=== PATIENT | female | born 1980 | race Caucasian/White ===

== ENCOUNTER 2023-05-17 22:12 | Inpatient (IN) ==
[2023-05-17] MEDS ORDERED: ONDANSETRON INJ 2 MG/ML 2 ML VIAL IV STA (23:01)
[2023-05-17] MEDS ORDERED: SODIUM CHLORIDE 0.9% 1000ML 1,000 ML IV STA (23:01)
[2023-05-17] MEDS ORDERED: fentaNYL citrate PF 100 MCG/2 ML VIAL IV PRN (23:01)
[2023-05-17] MEDS ORDERED: MoRPHine SULFATE 2 MG/ML CARP IV PRN (23:21)
[2023-05-17] MEDS ORDERED: MoRPHine SULFATE 4 MG/ML 1 ML CARP\\VIAL IV PRN (23:21)
--- NOTE | 2023-05-17 23:21 | Emergency Department Note ---
Impression & Plan Dislocation closed, hip, Alcohol intoxication ED Provider Note NAME: KEHINDE AGUIRRE AGE: 43 SEX: F : 1980 ARRIVES VIA: Ambulance INFORMANT: Patient ED PROVIDER(S): Johnnie Pina DO CHIEF COMPLAINT: Left hip pain HPI: Patient is a 43-year-old female who presents ER for left hip pain. Patient has a total hip DrAnge Chew 10 years ago. She notes she dislocated her right hip about 5 years ago. She was sitting and bent over and her left hip popped out. She has severe pain on the left hip. Denies any tingling or numbness. No falls. No trauma. No chest pain or shortness of breath. No nausea, vomiting, or diarrhea. No dysuria, urgency, or frequency. She does admit to drinking alcohol tonight. She ate a couple hotdogs prior to coming in around 8 to 9 PM. She drank a bottle of water just prior to the arrival of the ambulance at around 1030. PAST MEDICAL HISTORY:See Below PAST SURGICAL HISTORY:See Below FAMILY HISTORY:See Below SOCIAL HISTORY:See Below HOME MEDICATIONS:See Below ALLERGIES:See Below VITALS:See Below PHYSICAL EXAMINATION: GENERAL: Sitting up in bed, alert, well appearing, well nourished, no distress, non-toxic EYE EXAM: normal conjunctiva. OROPHARYNX: mucous membranes are moist NECK: supple, no nuchal rigidity, no adenopathy, non-tender LUNGS: Clear to auscultation. Normal chest wall mechanics HEART: no murmurs, S1 normal and S2 normal ABDOMEN: abdomen soft, non-tender, normo-active bowel sounds, no masses, no rebound or guarding. UPPER EXTREMITIES: upper extremities are grossly normal. LOWER EXTREMITIES: No pitting edema. NEURO EXAM: Normal sensorium, cranial nerves II-XII grossly intact, normal speech, no gross weakness of arms, no gross weakness of legs. MEDICAL DECISION MAKING: Patient is a 43-year-old female who presents the ER for left hip pain. IV was established blood work was obtained. External records were reviewed. Labs show mild leukocytosis of 10.8 thousand. No significant anemia. BMP along LFTs bilirubin and lipase was unremarkable. Alcohol was elevated at nearly 220. COVID was negative. X-rays are consistent with left hip dislocation. The alcohol intoxication and eating just prior to coming in patient would not be able to be sedated. I contacted orthopedics and they will take the patient to the OR in the morning. I discussed with Lori Rodríguez for admission and further evaluation. Patient was given IV fluids, Zofran and morphine while in the ER. Patient was admitted for close monitoring and to go to the OR for reduction in the morning Triage Nursing notes reviewed. Limited review of prior medical records performed Vital Signs: reviewed and remarkable for HTN Differential diagnosis: Fracture, subluxation, dislocation, contusion, ligamentous injury, neurovascular, compartment syndrome, rhabdomyolysis, as well as other pathologies. ER treatment provided: See below Diagnostics interpreted by me include EKG and cardiac monitoring as listed below: -Cardiac Monitoring: An order was placed for continuous cardiac monitoring. The monitor shows a rate of 92 with sinus rhythm. -ECG: none -Laboratory studies:Interpreted by me as stated above in MDM and shown below. Imaging studies: Xrays: As interpreted by me: X-ray of the left hip and pelvis shows a left hip dislocation per my read CTs show: none Consultation(s): As described in MDM discussed with both orthopedics and internal medicine Procedures:none Critical Care: None Past Med/Surg History Medical History (Updated 05/18/23 @ 01:57 by Johnnie Pina DO) Asthma Avascular necrosis of femur head, right (01/26/14) Dislocation of prosthetic device GERD (gastroesophageal reflux disease) Surgical History History of total hip arthroplasty Family History Other No pertinent family history in first degree relatives Social History Smoking Status: Current every day smoker Preferred Language: Irish Feels Safe at Home: Yes Allergies Allergies Allergy/AdvReac Type Severity Reaction Status Date / Time No Known Allergies Allergy Unverified 05/17/23 23:17 Home Meds Home Medications Medication Instructions Recorded Confirmed lactobacillus combination no.4 3 0 mmu cells PO DAILY 05/17/23 05/17/23 billion cell capsule (Probiotic) vitamin B complex 1 tab PO DAILY 05/17/23 05/17/23 Results & Data (ED) Vital Signs Vital Signs - 24 hr 05/17/23 22:20 05/17/23 22:17 05/18/23 00:36 Temperature 36.8 C Temperature Source Oral Pulse Rate 90 87 Pulse Rate [Apical] Pulse Rhythm [Apical] Pulse Strength [Apical] Respiratory Rate 20 Respiratory Effort / Characteristics Non-Labored Spontaneous Respiratory Depth Normal Respiratory Pattern Regular Blood Pressure 152/88 H Blood Pressure [Right Arm] Blood Pressure Mean 109 Blood Pressure Mean [Right Arm] Blood Pressure Position [Right Arm] Pulse Oximetry 99 99 Oxygen Delivery Method Room Air Nasal Cannula Oxygen Flow Rate 1 Sepsis Recent Fever Within 48 Hours No Sepsis New/Unexplained Change in Mental Status N/A Sepsis Action Taken by Nursing No Action Required 05/18/23 00:36 Temperature Temperature Source Pulse Rate Pulse Rate [Apical] 94 H Pulse Rhythm [Apical] Regular Pulse Strength [Apical] Normal Respiratory Rate 18 Respiratory Effort / Characteristics Non-Labored Spontaneous Respiratory Depth Normal Respiratory Pattern Regular Blood Pressure Blood Pressure [Right Arm] 124/81 Blood Pressure Mean Blood Pressure Mean [Right Arm] 95 Blood Pressure Position [Right Arm] Semi-fowlers Pulse Oximetry 99 Oxygen Delivery Method Nasal Cannula Oxygen Flow Rate 1 Sepsis Recent Fever Within 48 Hours Sepsis New/Unexplained Change in Mental Status Sepsis Action Taken by Nursing Laboratory Data 05/17/23 23:44 05/17/23 23:44 Lab Results 05/17/23 05/17/23 05/17/23 Range/Units 11:59 23:44 23:44 WBC 10.82 H (4.8-10.8) K/ul RBC 4.28 (4.20-5.40) M/uL Hgb 14.2 (12.0-16.0) g/dl Hct 41.7 (37.0-47.0) % MCV 97.4 (80.0-100.0) fL MCH 33.2 (25.0-34.0) pg MCHC 34.1 (32.0-36.0) g/dL RDW Std Deviation 49.7 H (36.4-46.3) fL RDW Coeff of Abby 13.8 (11.5-14.5) % Plt Count 328 (130-400) K/uL MPV 8.9 L (9.4-12.4) fL Immature Gran % (Auto) 0.4 % Neut % (Auto) 80.5 % Lymph % (Auto) 14.1 % [place] % (Auto) 3.9 % Eos % (Auto) 0.5 % Baso % (Auto) 0.6 % Neut # (Auto) 8.72 H (1.40-6.50) K/uL Lymph # (Auto) 1.53 (1.2-3.4) K/uL [place] # (Auto) 0.42 (0.11-0.59) K/uL Eos # (Auto) 0.05 (0-0.50) K/uL Baso # (Auto) 0.06 (0-0.2) K/uL Immature Gran # (Auto) 0.04 (0.01-0.20) K/uL Sodium 136 (136-145) mmol/L Potassium 3.7 (3.5-5.1) mmol/L Chloride 106 (98-107) mmol/L Carbon Dioxide 21 (21-32) mmol/L Anion Gap 9 (3-11) BUN 10 (6-23) mg/dl Creatinine 0.64 (0.6-1.2) mg/dl Est Cr Clr Drug Dosing 137.0 ml/min Est GFR ( Amer) 126.7 ml/min Est GFR (Non-Af Amer) 109.3 ml/min BUN/Creatinine Ratio 15.6 (10-20) Glucose 83 (70-99(Fasting)) mg/dl Calcium 8.1 L (8.6-10.3) mg/dl Total Bilirubin 0.3 (0.2-1.0) mg/dl AST 19 (13-39) U/L ALT 20 (7-52) U/L Alkaline Phosphatase 89 (34-104) U/L Total Protein 7.5 (6.0-8.3) gm/dl Albumin 4.5 (3.4-5.0) gm/dl Globulin 3.0 (2.5-4.0) gm/dl Albumin/Globulin Ratio 1.5 (0.9-2) Lipase 56 (11-82) U/L Ethyl Alcohol mg/dL (<10.0) mg/dl SARS-CoV-2, RNA, NAAT NEGATIVE (NEGATIVE) 05/17/23 Range/Units 23:44 WBC (4.8-10.8) K/ul RBC (4.20-5.40) M/uL Hgb (12.0-16.0) g/dl Hct (37.0-47.0) % MCV (80.0-100.0) fL MCH (25.0-34.0) pg MCHC (32.0-36.0) g/dL RDW Std Deviation (36.4-46.3) fL RDW Coeff of Abby (11.5-14.5) % Plt Count (130-400) K/uL MPV (9.4-12.4) fL Immature Gran % (Auto) % Neut % (Auto) % Lymph % (Auto) % [place] % (Auto) % Eos % (Auto) % Baso % (Auto) % Neut # (Auto) (1.40-6.50) K/uL Lymph # (Auto) (1.2-3.4) K/uL [place] # (Auto) (0.11-0.59) K/uL Eos # (Auto) (0-0.50) K/uL Baso # (Auto) (0-0.2) K/uL Immature Gran # (Auto) (0.01-0.20) K/uL Sodium (136-145) mmol/L Potassium (3.5-5.1) mmol/L Chloride (98-107) mmol/L Carbon Dioxide (21-32) mmol/L Anion Gap (3-11) BUN (6-23) mg/dl Creatinine (0.6-1.2) mg/dl Est Cr Clr Drug Dosing ml/min Est GFR ( Amer) ml/min Est GFR (Non-Af Amer) ml/min BUN/Creatinine Ratio (10-20) Glucose (70-99(Fasting)) mg/dl Calcium (8.6-10.3) mg/dl Total Bilirubin (0.2-1.0) mg/dl AST (13-39) U/L ALT (7-52) U/L Alkaline Phosphatase (34-104) U/L Total Protein (6.0-8.3) gm/dl Albumin (3.4-5.0) gm/dl Globulin (2.5-4.0) gm/dl Albumin/Globulin Ratio (0.9-2) Lipase (11-82) U/L Ethyl Alcohol mg/dL 214.1 H (<10.0) mg/dl SARS-CoV-2, RNA, NAAT (NEGATIVE) Administered Medications Fentanyl Citrate (Fentanyl Citrate Pf 100 Mcg/2 Ml Vial) 50 mcg IV Q15M PRN PRN Reason: Pain Stop: 05/31/23 23:00 Last Admin: 05/17/23 23:20 Dose: 50 mcg Documented By: CAW Discontinued Medications Sodium Chloride (Nss 1000ml) 1,000 mls @ 999 mls/hr IV .Q1H1M STA Stop: 05/18/23 00:01 Last Admin: 05/17/23 23:20 Dose: 999 mls/hr Documented By: NICOLEW Morphine Sulfate (Morphine Sulfate 4 Mg/Ml 1 Ml Carp\Vial) 4 mg IV NOW STA Stop: 05/17/23 23:58 Last Admin: 05/18/23 00:31 Dose: 4 mg Documented By: BAKARI Ondansetron HCl (Ondansetron Inj 2 Mg/Ml 2 Ml Vial) 4 mg IV NOW STA Stop: 05/17/23 23:02 Last Admin: 05/17/23 23:21 Dose: 4 mg Documented By: SHERYL Discharge Plan Visit Data Chief Complaint: Hip Pain ED Provider: Johnnie Pina Discharge Problem: Dislocation closed, hip, Alcohol intoxication Forms Stand Alone Forms: [facility] Prescriptions Prescriptions: No Action vitamin B complex Tablet 1 tab PO DAILY Probiotic 3 billion cell Capsule 0 mmu cells PO DAILY Rx Instructions: administer with a meal Referrals Referrals: Teresa Mccormack MD [Primary Care Provider] -
--- NOTE | 2023-05-17 23:42 | History & Physical Report ---
Date of Service May 17, 2023 Assessment & Plan (1) Dislocation of prosthetic device: Plan: 43yo female with history of bilateral hip arthroplasty presenting with acute atraumatic dislocation of left hip. Patient is in significant pain. Neurovascularly intact. Last ate at 05/17/23 at 20:00 -Admit to medical -Keep NPO -Pain control with Morphine as needed -Zofran as needed -Place external urinary catheter due to limited hip mobility -Orthopedic Surgery consultation appreciated - likely to OR for reduction in AM F/E/N - LR at 100mL/hr x 1L, electrolytes WNL, NPO for now, bowel regimen Ppx - SCDs to bilateral LE Code - Full per discussion with patient Dispo - Admit to medical with telemetry History of Present Illness Chief Complaint: left hip pain Primary Care Provider: Teresa Mccormack MD Nisha Goldman is a 43yo female with history of asthma, GERD, s/p bilateral [place] presenting with acute dislocation of left hip. Patient was at camp this evening with her family. She was leaning over when her left hip popped - she developed acute severe pain in her left hip and inability to move her LLE. She last ate some hot dogs at 20:00. Did drink some beer tonight as well. Patient had her hip arthroplasty appx [address] Chew. She did have a dislocation of the prosthesis approximately 5 years ago and had to go to the OR to have it reduced. Patient is in discomfort, unable to get her leg comfortable. Has full sensation of the LLE. Otherwise denies fever, chills, chest pain, cough, SOB, abdominal pain, nausea, vomiting, diarrhea. ER Course: Morphine 4mg Zofran 4mg Fentanyl 50mcg NSS x 1L Allergies Allergy/AdvReac Type Severity Reaction Status Date / Time No Known Allergies Allergy Unverified 05/17/23 23:17 Home Medications Medication Instructions Recorded Confirmed Type lactobacillus combination no.4 3 0 mmu cells PO DAILY 05/17/23 05/17/23 History billion cell capsule (Probiotic) vitamin B complex 1 tab PO DAILY 05/17/23 05/17/23 History Past Med/Surg History Medical History (Updated 05/18/23 @ 00:46 by Lurdes Rodríguez DO) Asthma Avascular necrosis of femur head, right (01/26/14) Dislocation of prosthetic device GERD (gastroesophageal reflux disease) Surgical History History of total hip arthroplasty Family History Other No pertinent family history in first degree relatives Social History Smoking Status: Current every day smoker Preferred Language: Maori Feels Safe at Home: Yes Review of Systems Review of Systems: All systems reviewed & are unremarkable except as noted in HPI & below Physical Exam Physical Exam: General: patient in significant discomfort, awake/alert and oriented Skin: warm, dry, intact, no rashes or lesions HEENT: NC/AT, PERRL, EOMI, anicteric sclera, conjunctiva without injection, external ear normal to inspection and nontender, nares patent, moist mucus membranes, dentition intact, no oropharyngeal lesions, neck supple, trachea midline, no LAD, no thyromegaly, no JVD Heart: +S1/S2, regular, no m/r/g Lungs: equal air entry bilaterally, no rales/rhonchi/wheezes Abd: +BS, soft, NT/ND, no masses/organomegaly/ascites Ext: warm, 2+ pulses in UE/LE bilaterally, no clubbing/cyanosis or edema, LLE internally rotated and shortened, 2+ DP/PT pulses Neuro: nonfocal, patient AA&O x 4, speech intact, no facial droop, moving all extremities on command with equal strength 5/5 Results & Data Results & Data Vital Signs (Past 12 Hours) Vital Signs Temp Pulse Resp BP Pulse Ox O2 Del Method 05/17/23 22:17 87 05/17/23 22:20 36.8 C 90 20 152/88 H 99 Room Air Laboratory Results Laboratory Results WBC 10.82 K/ul (4.8-10.8) H 05/17/23 23:44 RBC 4.28 M/uL (4.20-5.40) 05/17/23 23:44 Hgb 14.2 g/dl (12.0-16.0) 05/17/23 23:44 Hct 41.7 % (37.0-47.0) 05/17/23 23:44 MCV 97.4 fL (80.0-100.0) 05/17/23 23:44 MCH 33.2 pg (25.0-34.0) 05/17/23: MCHC 34.1 g/dL (32.0-36.0) 05/17/23:44 RDW Std Deviation 49.7 fL (36.4-46.3) H 05/17/23: RDW Coeff of Abby 13.8 % (11.5-14.5) 05/17/23:44 Plt Count 328 K/uL (130-400) 05/17/23:44 MPV 8.9 fL (9.4-12.4) L 05/17/23: Immature Gran % (Auto) 0.4 % 05/17/23: Neut % (Auto) 80.5 % 05/17/23:44 Lymph % (Auto) 14.1 % 05/17/23:44 [place] % (Auto) 3.9 % 05/17/23:44 Eos % (Auto) 0.5 % 05/17/23 23:44 Baso % (Auto) 0.6 % 05/17/23:44 Neut # (Auto) 8.72 K/uL (1.40-6.50) H 05/17/23:44 Lymph # (Auto) 1.53 K/uL (1.2-3.4) 05/17/23 23:44 [place] # (Auto) 0.42 K/uL (0.11-0.59) 05/17/23:44 Eos # (Auto) 0.05 K/uL (0-0.50) 05/17/23 23:44 Baso # (Auto) 0.06 K/uL (0-0.2) 05/17/23 23:44 Immature Gran # (Auto) 0.04 K/uL (0.01-0.20) 05/17/23:44 Sodium 136 mmol/L (136-145) 05/17/23:44 Potassium 3.7 mmol/L (3.5-5.1) 05/17/23:44 Chloride 106 mmol/L (98-107) 05/17/23:44 Carbon Dioxide 21 mmol/L (21-32) 05/17/23 23:44 Anion Gap 9 (3-11) 05/17/23 23:44 BUN 10 mg/dl (6-23) 05/17/23 23:44 Creatinine 0.64 mg/dl (0.6-1.2) 05/17/23 23:44 Est Cr Clr Drug Dosing 137.0 ml/min 05/17/23 23:44 Est GFR ( Amer) 126.7 ml/min 05/17/23 23:44 Est GFR (Non-Af Amer) 109.3 ml/min 05/17/23 23:44 BUN/Creatinine Ratio 15.6 (10-20) 05/17/23 23:44 Glucose 83 mg/dl (70-99(Fasting)) 05/17/23 23:44 Calcium 8.1 mg/dl (8.6-10.3) L 05/17/23 23:44 Total Bilirubin 0.3 mg/dl (0.2-1.0) 05/17/23 23:44 AST 19 U/L (13-39) 05/17/23 23:44 ALT 20 U/L (7-52) 05/17/23 23:44 Alkaline Phosphatase 89 U/L (34-104) 05/17/23 23:44 Total Protein 7.5 gm/dl (6.0-8.3) 05/17/23 23:44 Albumin 4.5 gm/dl (3.4-5.0) 05/17/23 23:44 Globulin 3.0 gm/dl (2.5-4.0) 05/17/23 23:44 Albumin/Globulin Ratio 1.5 (0.9-2) 05/17/23 23:44 Lipase 56 U/L (11-82) 05/17/23 23:44 Ethyl Alcohol mg/dL 214.1 mg/dl (<10.0) H 05/17/23 23:44 SARS-CoV-2, RNA, NAAT NEGATIVE (NEGATIVE) 05/17/23 11:59 Diagnostic Findings X-ray left hip - per my interpretation - appears to have superior dislocation of prothesis. No obvious fracture PG Care Time/CCT Total # of Minutes Spent Total Time Spent with Patient: Total time spent is greater than 50% in coordination of care (as documented) at patient's floor/unit and/or counseling patient: Coding Level of Care Code 93404 INT INP/OBS CARE Diagnoses Dislocation of prosthetic device T85.628A
[2023-05-17] MEDS ORDERED: MoRPHine SULFATE 4 MG/ML 1 ML CARP\\VIAL IV STA (23:57)
[2023-05-18 00:08] LABS: Basophils # (auto) 0.06 K/uL (0-0.2); Basophils % (auto) 0.6 %; Eosinophils # (auto) 0.05 K/uL (0-0.50); Eosinophils % (auto) 0.5 %; Hematocrit (blood only) 41.7 % (37.0-47.0); Hemoglobin 14.2 g/dl (12.0-16.0); Immature Granulocytes # (auto) 0.04 K/uL (0.01-0.20); Immature Granulocytes % (auto) 0.4 %; Lymphocytes # (auto) 1.53 K/uL (1.2-3.4); Lymphocytes % (auto) 14.1 %; Mean Corpuscular Hemoglobin 33.2 pg (25.0-34.0); Mean Corpuscular Hgb Conc 34.1 g/dL (32.0-36.0); Mean Corpuscular Volume 97.4 fL (80.0-100.0); Mean Platelet Volume 8.9 fL (9.4-12.4); Monocytes # (auto) 0.42 K/uL (0.11-0.59); Monocytes % (auto) 3.9 %; Neutrophils # (auto) 8.72 K/uL (1.40-6.50); Neutrophils % (auto) 80.5 %; Platelet Count 328 K/uL (130-400); RDW Coefficient of Variation 13.8 % (11.5-14.5); RDW Standard Deviation 49.7 fL (36.4-46.3); Red Blood Count 4.28 M/uL (4.20-5.40); White Blood Count 10.82 K/ul (4.8-10.8)
[2023-05-18 00:19] LABS: Albumin Level 4.5 gm/dl (3.4-5.0); Bilirubin,Total 0.3 mg/dl (0.2-1.0); Calcium 8.1 mg/dl (8.6-10.3); Potassium 3.7 mmol/L (3.5-5.1)
[2023-05-18 00:25] LABS: Albumin Globulin Ratio 1.5 (0.9-2); BUN Creatinine Ratio 15.6 (10-20); Est GFR (African American) 126.7 ml/min; Est GFR (Non-African American) 109.3 ml/min; Total Protein 7.5 gm/dl (6.0-8.3)
[2023-05-18] MEDS ORDERED: LACTATED RINGER'S 1,000 ML IV SCH (02:30)
[2023-05-18] MEDS ORDERED: MoRPHine SULFATE 2 MG/ML CARP IV PRN ×2 (02:30→11:20)
[2023-05-18] MEDS ORDERED: ACETAMINOPHEN 325 MG TAB PO PRN (02:30)
[2023-05-18] MEDS ORDERED: MAGNESIUM HYDROXIDE SUSP 30 ML UDC PO PRN (02:30)
[2023-05-18] MEDS ORDERED: NALOXONE HCL 0.4 MG/1 ML VIAL/CARP IV PRN (02:30)
[2023-05-18] MEDS ORDERED: bisacodyL 10 MG SUPP PR PRN (02:30)
[2023-05-18] MEDS ORDERED: ONDANSETRON INJ 2 MG/ML 2 ML VIAL IV PRN ×2 (02:30→17:09)
[2023-05-18] MEDS: MoRPHine SULFATE 4 MG/ML 1 ML CARP\\VIAL IV PRN ×5 (02:56→14:25)
--- NOTE | 2023-05-18 07:33 | XRay Report ---
XR hip LT 2V w pelvis CLINICAL HISTORY: Left hip pain. COMPARISON STUDY: Left hip 05/28/2018. FINDINGS: Superior dislocation of the left femoral prosthesis in relation to the acetabular cup. No a cute fractures identified within the pelvis or hips. There is a right total hip arthroplasty which ap pears intact. Progressive cortical thickening within the proximal shaft of the right femur. IMPRESSION: 1. Dislocated left femoral prosthesis. No acute fractures. 2. Progressive cortical thickening within the within the proximal shaft of the right femur. This coul d represent stress related changes/healing stress fracture. ACT 112: Negative or not required by law. Electronically signed by: Nathan Huang M.D. 05/18/2023 7:31 AM
--- NOTE | 2023-05-18 08:40 | Anesthesiology Consultation ---
Date of Service May 18, 2023 Assessment & Plan Chart Review Chart Review: Acceptable Risk for Surgery and Patient NOT seen in Pre Admission Testing Consults Requested none History Surgery Operation Date: 05/18/23 07:00 Proposed Procedures p Left Hip Closed Reduction - Peter Ortiz M.D. Height/Weight Height: 5 ft 5 in Weight: 103.2 kg Allergies Allergy/AdvReac Type Severity Reaction Status Date / Time No Known Allergies Allergy Unverified 05/17/23 23:17 Medications Home Medications Medication Instructions Recorded Confirmed Last Taken lactobacillus combination no.4 3 0 mmu cells PO DAILY 05/17/23 05/17/23 Unknown billion cell capsule (Probiotic) vitamin B complex 1 tab PO DAILY 05/17/23 05/17/23 Unknown Active Medications Generic Name Dose Route Start Last Admin Trade Name Freq PRN Reason Stop Dose Admin Lactated Ringer's 1,000 mls @ 100 mls/hr 05/18/23 02:30 05/18/23 02:54 Lr IV 05/18/23 12:29 100 mls/hr .Q10H DELFINA Administration Morphine Sulfate 4 mg 05/18/23 02:30 05/18/23 06:50 Morphine Sulfate 4 Mg/Ml 1 Ml Carp\Vial IV 06/01/23 02:29 4 mg Q3H PRN Administration Pain (6,7,8,9,10) Past Medical History Medical History (Updated 05/18/23 @ 01:57 by Johnnie Pina DO) Asthma Avascular necrosis of femur head, right (01/26/14) Dislocation of prosthetic device GERD (gastroesophageal reflux disease) Past Family History Family History Other No pertinent family history in first degree relatives Past Surgical History Surgical History History of total hip arthroplasty Social History Smoking Status: Current every day smoker tobacco type: cigarettes Do You Dip or Chew Tobacco: No Hx Alcohol Use: Yes Alcohol type: beer alcohol intake frequency: 0-2 drinks per day Alcohol Intake Frequency Comment: some times 6-8 beers daily sometimes weekly Hx Substance Use: Yes substance use type: marijuana Last Used Substance Other:: a couple months ago Physical Exam Vital Signs Last Vital Signs Temp 36.6 C 05/18/23 07:38 Pulse 72 05/18/23 07:38 Resp 16 05/18/23 07:38 BP 147/84 H 05/18/23 07:38 Pulse Ox 95 05/18/23 07:38 O2 Del Method Room Air 05/18/23 07:38 O2 Flow Rate 2 05/18/23 02:11 Testing Laboratory Results 05/17/23 23:44 05/17/23 23:44 Blood Type O Positive 05/18/23 07:14 Antibody Screen NEGATIVE 05/18/23 07:14
--- NOTE | 2023-05-18 10:37 | Hospitalist Progress Note ---
Date of Service May 18, 2023 Assessment & Plan (1) Dislocation of prosthetic device: Plan: 43yo female with history of bilateral hip arthroplasty presenting with acute atraumatic dislocation of left hip. Patient is in significant pain. Neurovascularly intact. Last ate at 05/17/23 at 20:00 -Admit to medical -Keep NPO -Pain control with Morphine as needed -Zofran as needed -Place external urinary catheter due to limited hip mobility -Orthopedic Surgery consultation appreciated - likely to OR for reduction this AM. Orthopedic service will take over as primary service. -Patient reports she is not going through any signs of withdrawal. -Patient not interesting in alcohol rehab as she states she does not drink daily, only on weekends, and was camping this past weekend. No acute medical issues at this time. Medicine service will sign off. Please free feel free to contact our service for any questions or concerns. DVT: SCDs Admission and Anticipated Discharge Date Admission Date: May 17, 2023 Subjective 43 yo female reports no tremors, hallucinations, nausea, vomiting. Patient has some discomfort from affected hip joint. Review of Systems Review of Systems: All systems reviewed & are unremarkable except as noted in HPI & below Physical Exam Physical Exam: General: patient in significant discomfort, awake/alert and oriented Skin: warm, dry, intact, no rashes or lesions HEENT: NC/AT, PERRL, EOMI, anicteric sclera, no JVD Heart: +S1/S2, regular, no m/r/g Lungs: equal air entry bilaterally, no rales/rhonchi/wheezes Abd: +BS, soft, NT/ND, no masses/organomegaly/ascites Ext: warm, 2+ pulses in UE/LE bilaterally, no clubbing/cyanosis or edema, LLE internally rotated and shortened, 2+ DP/PT pulses Neuro: nonfocal, patient AA&O x 4 Results & Data Results & Data Vital Signs (Past 12 Hours) Vital Signs Temp Pulse Pulse Pulse Resp BP BP 05/18/23 07:38 36.6 C 72 16 147/84 H 05/18/23 02:00 36.9 C 91 H 18 132/84 05/18/23 02:11 36.7 C 91 H 18 116/95 05/18/23 00:36 94 H 18 05/18/23 00:36 BP Pulse Ox O2 Del Method O2 Flow Rate 05/18/23 07:38 95 Room Air 05/18/23 02:00 98 Room Air 05/18/23 02:11 94 Nasal Cannula 2 05/18/23 00:36 124/81 99 Nasal Cannula 1 05/18/23 00:36 99 Nasal Cannula 1 PG Care Time/CCT Total # of Minutes Spent Total Time Spent with Patient: Total time spent is greater than 50% in coordination of care (as documented) at patient's floor/unit and/or counseling patient: Coding Level of Care Code 86914 SUB INP/OBS CARE 2/35MIN Diagnoses Dislocation of prosthetic device T85.628A
--- NOTE | 2023-05-18 17:00 | Orthopedic Consultation ---
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 This is now her second dislocation on this hip. We discussed that each dislocation of the joint puts her at increased risk for recurrent instability and potential need for revision total hip in the future. I recommended urgent reduction to reduce pain and restore the ability to ambulate. Risks, benefits, and alternatives of the procedure were explained in detail. Risks include fracture, hardware displacement, irreducible dislocation requiring open reduction, recurrent dislocation, persistent pain or stiffness, or need for further surgery. The patient understands all of this and wishes to proceed. Informed consent was obtained. History of Present Illness Reason for Consultation: Left hip dislocation Attending Physician: Peter Ortiz History of Present Illness Ms. Goldman is a 43-year-old female who previously underwent bilateral total hip arthroplasties somewhere around [address] 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 She overall is done well with this left hip. She did have 1 previous dislocation about 5 years ago that was successfully reduced closed. [place] campground yesterday and states that she just bent over and her left hip popped out of place. She denies a fall or significant injury. She was drinking alcohol at the time, but denies intoxication. She had immediate pain and inability to bear weight on her left leg. Allergies Allergy/AdvReac Type Severity Reaction Status Date / Time No Known Allergies Allergy Unverified 05/17/23 23:17 Home Medications Medication Instructions Recorded Confirmed Type lactobacillus combination no.4 3 0 mmu cells PO DAILY 05/17/23 05/17/23 History billion cell capsule (Probiotic) vitamin B complex 1 tab PO DAILY 05/17/23 05/17/23 History Patient History Medical History (Updated 05/18/23 @ 16:59 by Peter Ortiz M.D.) Asthma Avascular necrosis of femur head, right (01/26/14) Dislocation of prosthetic device GERD (gastroesophageal reflux disease) Surgical History History of total hip arthroplasty Family History Other No pertinent family history in first degree relatives Social History Smoking Status: Current every day smoker Second Hand Exposure: Yes; Do You Dip or Chew Tobacco: No; Tobacco Cessation Education Requested by Patient: No Hx Alcohol Use: Yes Alcohol type: beer Hx Substance Use: Yes Last Used Substance Other:: a couple months ago Preferred Language: Romansh Communication Ability: Effective Breaster Required: No Beliefs That Will Affect Care: None Current Living Situation: Family Other Information That Helps Us Care for You: No Feels Safe at Home: Yes Safety Concerns: Feels Safe At This Time Assistive Devices: Glasses Physical Exam Physical Exam: Examination of the left hip shows no open wounds. She has a well-healed surgical incision without evidence of infection. There is shortening and internal rotation of the leg. There is mild swelling and tenderness to palpation of the thigh and hip area. Compartments are soft and compressible. Intact ankle dorsiflexion and plantarflexion. Results & Data Vital Signs (Past 12 Hours) Vital Signs Temp Pulse Resp BP Pulse Ox O2 Del Method 05/18/23 16:43 37.4 C 93 H 20 149/100 H 92 Room Air 05/18/23 15:58 36.7 C 79 18 161/78 H 94 Room Air 05/18/23 07:38 36.6 C 72 16 147/84 H 95 Room Air Diagnostic Findings Previous x-rays of the left hip from 05/17/23 were independently interpreted by me. She has bilateral total hip arthroplasties in place. Left total hip is dislocated. No obvious periprosthetic fractures or implant loosening.
[2023-05-18] MEDS ORDERED: MEPERIDINE HCL 25 MG/ML CARP/VIAL IV PRN (17:09)
[2023-05-18] MEDS ORDERED: ePHEDrine sulfate 50 MG/ML AMP IV PRN (17:09)
[2023-05-18] MEDS ORDERED: MoRPHine SULFATE 10 MG/ML CARP/VIAL IV PRN (17:09)
[2023-05-18] MEDS ORDERED: fentaNYL citrate PF 100 MCG/2 ML VIAL IV PRN (17:09)
[2023-05-18] MEDS ORDERED: ALBUTEROL 0.083% NEBU SOLN 3 ML VIAL INH PRN (17:09)
[2023-05-18] MEDS ORDERED: ATROPINE SULFATE 0.1 MG/ML 10ML SYR IV PRN (17:09)
[2023-05-18] MEDS ORDERED: fentaNYL citrate PF 100 MCG/2 ML VIAL ONE (17:16)
[2023-05-18] MEDS ORDERED: PROPOFOL IV EMULSION 10 MG/ML 20 ML VIAL IV ONE ×2 (17:16→17:59)
[2023-05-18] MEDS ORDERED: ONDANSETRON INJ 2 MG/ML 2 ML VIAL ONE (17:16)
[2023-05-18] MEDS ORDERED: LIDOCAINE 2% 2 ML VIAL/AMP(20MG/ML) INFIL ONE (17:16)
[2023-05-18] MEDS ORDERED: DEXAMETHASONE SOD INJ 4 MG/ML VIAL ONE (17:16)
[2023-05-18] MEDS ORDERED: MIDAZOLAM HCL 1 MG/ML 2ML VIAL ONE (17:16)
--- NOTE | 2023-05-18 17:55 | Operative Report ---
Post Operative Report Pre & Post Diagnosis Operation Date: 05/18/23 07:00 Pre-Op Diagnosis: Left hip dislocated total hip arthroplasty Post-Op Diagnosis: Left hip dislocated total hip arthroplasty I identified the patient and participated in the time-out.: Yes Procedure Operation Date: 05/18/23 07:00 Actual Procedures Left hip closed reduction of dislocated total hip arthroplasty (19123) - Peter Ortiz M.D. Surgeon Peter Ortiz MD Etl Programmer None Estimated Blood Loss 0 Findings Consistent with Post-Op Diagnosis Specimens None Complications none Disposition Disposition: Recovery Room Indications Ms. Goldman is a 43-year-old female who had a previous left total hip arthroplasty about 10 years ago. She dislocated the hip yesterday while bending over. History, clinical exam, and imaging were consistent with the above diagnosis. Risks, benefits, and alternatives of surgery were explained in detail. The patient understood all this and wished to proceed. Description of Procedure Patient was identified in the preoperative holding area. Operative extremity was marked. Patient was then brought back to the operating room, and general anesthesia was induced without complication. After adequate anesthesia had been obtained, I had an nurse assistant hold counter pressure on the ASIS well I pulled longitudinal traction on the femur with the hip and knee in flexion. I internally rotated and adducted the hip while pulling longitudinal traction, and was able to visualize and palpate reduction of the hip joint. I then extended the leg and examined leg lengths. Leg length was restored to normal. Knee immobilizer was then applied. Postreduction x- rays confirmed concentric reduction of the total hip arthroplasty, without evidence of fracture or displacement of the prosthetic components. Patient was then awakened from anesthesia and taken to the Post Anesthesia Care Unit in stable condition. There were no immediate complications from the procedure. I was present and scrubbed for the entire procedure. I attest to the content of the Intraoperative Record and any orders documented therein. Any exceptions are noted below.
--- NOTE | 2023-05-18 18:00 | Discharge Summary ---
Date of Service May 18, 2023 Admission HPI Per Admitting Provider Nisha Goldman is a 43yo female with history of asthma, GERD, s/p bilateral [place] presenting with acute dislocation of left hip. Patient was at camp this evening with her family. She was leaning over when her left hip popped - she developed acute severe pain in her left hip and inability to move her LLE. She last ate some hot dogs at 20:00. Did drink some beer tonight as well. Patient had her hip arthroplasty appx [address] Chew. She did have a dislocation of the prosthesis approximately 5 years ago and had to go to the OR to have it reduced. Patient is in discomfort, unable to get her leg comfortable. Has full sensation of the LLE. Otherwise denies fever, chills, chest pain, cough, SOB, abdominal pain, nausea, vomiting, diarrhea. ER Course: Morphine 4mg Zofran 4mg Fentanyl 50mcg NSS x 1L Principal Diagnosis Left hip dislocation of total hip arthroplasty Discharge Data Allergies Allergy/AdvReac Type Severity Reaction Status Date / Time No Known Allergies Allergy Unverified 05/17/23 23:17 Consultations 05/17/23 23:50 ED Decision to Admit Stat 05/18/23 02:30 Consult Orthopedic Surgery Routine Procedures Performed Operation Date: 05/18/23 07:00 Actual Procedures p Left Hip Closed Reduction(Left) - Peter Ortiz M.D. Ordered Studies 05/18/23 FL hip LT 2-3V Routine Hospital Course (1) Failure of left total hip arthroplasty with dislocation of hip: Patient was initially admitted to the internal medicine service on 05/17 due to her acute alcohol intoxication. Overnight she did not have any further medical issues, and she was then transferred to the orthopedics service on 05/18. She was then taken to the operating room where she underwent successful closed reduction of her dislocated total hip arthroplasty. She was then discharged home in good condition. Total Time Total Time Spent Total Time Spent (In Minutes): 15 Discharge Plan Discharge Items Patient Disposition: Home - Self-Care Reason For Visit: LEFT HIP DISLOCATION Discharge Diagnosis: Left hip dislocation of total hip arthroplasty Activity: Per Instructions section Non-emergency contact: Surgeon Call non-emergency contact if: your pain is not controlled Follow-up/Referrals: Teresa Mccormack MD [Primary Care Provider] - Peter Ortiz M.D. [Physician] - Diet: Regular Addtl Attending Provider Instructions: -For routine questions regarding your hip, call the orthopedics clinic at [phone] during regular business hours (8am-5pm). For urgent issues after regular business hours, you may call the clinic to be connected to the on-call physician. Weight Bearing -You may weight bear as tolerated on your operative leg. You may use a walker or crutches as needed for support and balance. Total Hip Precautions -Do not cross your legs, flex your hip past 90 degrees, or internally rotate your hip. -Keep the knee immobilizer in place at all times to prevent excessive flexion of the hip and therefore prevent recurrent hip dislocation. -Place pillows between your legs when in bed to prevent crossing your legs while sleeping. -If you hear a clunk and your leg is suddenly much shorter and turned inward compared to your other leg, come to the Emergency Department immediately. Follow Up -Follow-up in orthopedic surgery clinic with Carly Roblero, or Tiago hopkins. Please call [facility] at [phone] to schedule a follow-up appointment in the next 1 to 2 weeks. Pending Studies at Discharge: No Stand-Alone Forms: My [employer], Smoking Cessation Medications and DC Order Prescriptions: Continued vitamin B complex Tablet 1 tab PO DAILY Probiotic 3 billion cell Capsule 0 mmu cells PO DAILY Rx Instructions: administer with a meal Discharge Orders: Discharge Order (Routine); Ordered 05/18/23 Ordered By: Peter Ortiz Admission Data Admit Date/Time: 05/17/23 23:41 Attending Provider: Peter Oritz Admit Provider: Lurdes Rodríguez Primary Care Provider: Teresa Mccormack Other Providers: Lurdes Rodríguez ; Peter Ortiz
--- NOTE | 2023-05-18 18:52 | Anesthesiology Progress Note ---
Date of Service May 18, 2023 Anesthesia Post Procedure Vital Signs Vital Signs: Temp Pulse Pulse Pulse Resp BP BP 05/18/23 18:35 36.9 C 101 H 15 05/18/23 18:25 100 H 16 05/18/23 18:15 108 H 18 05/18/23 18:05 114 H 22 05/18/23 17:58 36.9 C 113 H 25 H 05/18/23 16:43 37.4 C 93 H 20 149/100 H 05/18/23 15:58 36.7 C 79 18 161/78 H 05/18/23 07:38 36.6 C 72 16 147/84 H 05/18/23 02:00 36.9 C 91 H 18 132/84 05/18/23 02:11 36.7 C 91 H 18 116/95 05/18/23 00:36 94 H 18 05/18/23 00:36 05/17/23 22:17 87 05/17/23 22:20 36.8 C 90 20 152/88 H BP Pulse Ox O2 Del Method O2 Flow Rate 05/18/23 18:35 152/93 H 95 Nasal Cannula 3 05/18/23 18:25 139/92 96 Oxymask 5 05/18/23 18:15 161/87 H 91 Oxymask 5 05/18/23 18:05 141/86 H 97 Oxymask 11 05/18/23 17:58 160/83 H 96 Oxymask 11 05/18/23 16:43 92 Room Air 05/18/23 15:58 94 Room Air 05/18/23 07:38 95 Room Air 05/18/23 02:00 98 Room Air 05/18/23 02:11 94 Nasal Cannula 2 05/18/23 00:36 124/81 99 Nasal Cannula 1 05/18/23 00:36 99 Nasal Cannula 1 05/17/23 22:17 05/17/23 22:20 99 Room Air Pain Intensity Left Hip: Pain Intensity: 10 Transfer of Care Handoff Completed per policy Notes Mental Status: alert / awake / arousable Patient Amnestic to Procedure: Yes Nausea / Vomiting: adequately controlled Pain: adequately controlled Airway Patency, RR, SpO2: stable & adequate BP & HR: stable & adequate Hydration State: stable & adequate Anesthetic Complications: no major complications apparent and Pt Satisfied with anesthetic care Notes: pt with some bronchospasm intraop d/t tob use and asthma, resolved/minimized with postop albuterol neb. Advised she f/u with her pcp post d/c.
--- NOTE | 2023-05-18 20:05 | Fluoroscopy Report ---
FL hip LT 2-3V CLINICAL HISTORY: LEFT CLOSED REDUCTION HIP TECHNIQUE: 1 views were obtained with the C-arm in the OR with the above procedure. Total fluoroscopy time was 4.6 seconds. Radiation dose was 1.1 mGy. Comparison: Comparison is made to left hip arthroplasty 05/17/2023 FINDINGS/IMPRESSION: Intraoperative images were obtained of left hip dislocation reduction in this pa tient with a total hip arthroplasty. Please correlate with intraoperative fluoroscopy and operative report. ACT 112: Negative or not required by law. Electronically signed by: Janes Hernandez M.D. 05/18/2023 8:04 PM
[2023-05-18] MEDS ORDERED: DOCUSATE SODIUM/SENNA 50/8.6MG TAB PO SCH (21:00)
== END 2023-05-18 23:22 | disposition home or self-care (01) | DRG 561 ==
LOC: ED 22:12 → 3E 23:41 → SUATTDRO 23:41 → 3E 05-18 02:11